=== PATIENT | male | born 1940 | race Caucasian/White ===

== ENCOUNTER 2022-11-04 12:45 | Emergency (ER) | payer MEDICARE ==
[~2022-11-04] VITALS: Ht 172.7 cm; Wt 100.0 kg
[2022-11-04 12:53] VITALS: BP 163/75
[2022-11-04 13:00] VITALS: BP 137/68
[2022-11-04 13:31] VITALS: BP 146/69
[2022-11-04] MEDS ORDERED: BACTRIM DS1 TAB PO (14:23)
[2022-11-04 14:39] VITALS: BP 146/69
== END 2022-11-04 14:44 | disposition home or self-care (01) ==
LOC: ED 12:45
PROC: 0HQHXZZ Repair Right Upper Leg Skin, External Approach (ICD-10-PCS; principal; 2022-11-04)
DX: S71.111A Laceration without foreign body, right thigh, initial encounter (principal); W31.2XXA Contact with powered woodworking and forming machines, initial encounter; Y92.009 Unspecified place in unspecified non-institutional (private) residence as the place of occurrence of the external cause